=== PATIENT | female | born 1935 | race African-American/Black ===

== ENCOUNTER 2019-08-12 08:21 | Day surgery (SDC) | payer MEDICARE, MEDICAID ==
[2019-08-08 17:37] LABS: BASOPHILS % (AUTO) 1.1 % (0.0-2.0); EOSINOPHILS % (AUTO) 2.6 % (0.0-3.0); HEMATOCRIT 37.1 % (37.0-47.0); HEMOGLOBIN 12.5 G/DL (12.0-16.0); MEAN CORPUSCULAR VOLUME 87 FL (80-99); MONOCYTES % (AUTO) 6.6 % (1.0-10.0); NEUTROPHILS % (AUTO) 63.6 % (45.0-75.0); PLATELET COUNT 248 K/UL (150-450); RED BLOOD COUNT 4.25 M/UL (4.20-5.40); RED CELL DISTRIBUTION WIDTH 10.8 % (11.6-14.8); WHITE BLOOD COUNT 7.1 K/UL (4.8-10.8)
[2019-08-08 17:55] LABS: ANION GAP 9 mmol/L (5-15); BLOOD UREA NITROGEN 21 mg/dL (7-18); CALCIUM 9.8 MG/DL (8.5-10.1); CARBON DIOXIDE 26 MMOL/L (21-32); CHLORIDE 104 MMOL/L (98-107); CREATININE 1.3 MG/DL (0.55-1.30); POTASSIUM 4.3 MMOL/L (3.5-5.1); SODIUM 139 MMOL/L (136-145)
--- NOTE | 2019-08-09 10:48 | Opthalmology H&P ---
Ophthalmology H&P H&P Chief Complaint: decreased vision in right eye HPI Vision Affects Ability to: read, manage personal affairs HPI Narrative Blurry vision Exam Visual Acuity: OD Counting Fingers OD 20/30 Tension: OD 15 OS 16 Eye Exam: normal OU: external exam, palpebral fissure-width, marginal reflex distance, levator function, corneas, anterior chambers, lens - Dense PSC OD / PSC OS, fundus exam; findings: lens - Dense PSC OD /PSC OS Assessment/Plan Treatment Plan: cataract extraction w/ lens implant Goals of Treatment: improvement of vision, enhance quality of life Attestation Attestation The risks and benefits of the surgery as well as alternative procedures were explained to the patient in detail. Richard Reddy MD Aug 09, 2019 10:48
--- NOTE | 2019-08-09 10:50 | Pre-Procedure Note/Attestation ---
Pre-Procedure Note/Attestation Complete Prior to Procedure Planned Procedure: right Procedure Narrative: Cataract extraction with intraocular lens implant right eye Indications for Procedure Pre-Operative Diagnosis: Dense posterior subcapsular cataract right eye Attestation I attest that I discussed the nature of the procedure; its benefits; risks and complications; and alternatives (and the risks and benefits of such alternatives ), prior to the procedure, with the patient (or the patient's legal customer service representative). I attest that, if there was a reasonable possibility of needing a blood transfusion, the patient (or the patient's legal customer service representative) was given the [facility] standardized written summary, pursuant to the Ish Priscilla Blood Safety Act ([place] Health and Safety Code # 1645, as amended). I attest that I re-evaluated the patient just prior to the surgery and that there has been no change in the patient's H&P, except as documented below: Richard Reddy MD Aug 09, 2019 10:50
[2019-08-12] VITALS (8 sets, daily range): BP systolic 143–178; BP diastolic 76–92
[~2019-08-12] VITALS: Ht 160 cm; Wt 72.6 kg
[~2019-08-12 08:21] MED LIST: AMLODIPINE BESYL5 MG ORAL; Akten 3.5% 1ml Btl RIGHT EYE ONE; GLYBURIDE-METF1 EAC1 PO; Proparacaine 0.5% Opth Soln 15ml RIGHT EYE ONE; Tetracaine 0.5% Opth 4ml Soln RIGHT EYE ONE
[2019-08-12] MEDS: Tobramycin Op Soln 0.3% 5ml RIGHT EYE SCH ×3 (12:21→13:01)
[2019-08-12] MEDS: Cyclopentolate 1% Opth Sol 2ml RIGHT EYE SCH ×3 (12:21→13:00)
[2019-08-12] MEDS: Phenylephrine 10% Opth Soln 5ml RIGHT EYE SCH ×3 (12:22→13:00)
[2019-08-12] MEDS: Diclofenac Sod 0.1% Op Soln RIGHT EYE SCH ×3 (12:22→13:01)
[2019-08-12] MEDS: Tropicamide 1% Opth 15ml Soln RIGHT EYE SCH ×3 (12:22→13:00)
[2019-08-12] MEDS ORDERED: LISINOPRIL10 MG ORAL (12:59)
[2019-08-12] MEDS ORDERED: ATORVASTATIN CA20 MG ORAL (12:59)
[2019-08-12] MEDS ORDERED: METOPROLOL TART25 MG ORAL (12:59)
[2019-08-12] MEDS ORDERED: METFORMIN HCL500 M1 ORAL (12:59)
[2019-08-12] MEDS ORDERED: CLOPIDOGREL75 MG ORAL (12:59)
[2019-08-12] MEDS ORDERED: ASPIRIN81 MG ORAL (12:59)
[2019-08-12] MEDS ORDERED: EPINEPHrine 1mg/1ml Amp ONE ×2 (13:30→15:04)
[2019-08-12] MEDS ORDERED: Polysporin Opth Oint 3.5gm ONE (13:30)
[2019-08-12] MEDS ORDERED: BSS 500ml btl ONE (13:31)
[2019-08-12] MEDS ORDERED: Povidone-Iodine 5% opth solution ONE (13:31)
[2019-08-12] MEDS ORDERED: Sodium Hyaluronate 14 mg/ml 0.85ml ONE (13:31)
[2019-08-12] MEDS ORDERED: BSS 15ml BTL ONE ×2 (13:31→15:04)
[2019-08-12] MEDS ORDERED: Propofol 200mg/20ml IV ONE (14:00)
[2019-08-12] MEDS ORDERED: Pred Forte 1% Opth Susp 1ml ONE (14:00)
[2019-08-12] MEDS ORDERED: NS Irrig 1000ml ONE (14:00)
[2019-08-12] MEDS ORDERED: Sterile Water Irrig 1000ml IRRIG ONE (14:00)
[2019-08-12] MEDS ORDERED: LR 1000ml ONE (14:00)
[2019-08-12] MEDS ORDERED: Lidocaine 1% MPF 10mg/ml 5ml ONE (14:00)
[2019-08-12] MEDS ORDERED: Dexamethasone 4mg/ml vial ONE (14:00)
[2019-08-12] MEDS ORDERED: Pilocarpine 1% Opth 15ml Soln ONE (14:00)
[2019-08-12] MEDS ORDERED: Midazolam 2mg/2ml Inj ONE (14:07)
[2019-08-12] MEDS ORDERED: LR 1000ml 1,000 ML IVLG SCH (14:25)
--- NOTE | 2019-08-12 14:29 | Anethesia Preoperative Eval ---
Anesthesia Pre-op PMH/ROS General Date of Evaluation: Aug 12, 2019 Time of Evaluation: 14:13 Anesthesiologist: Armin ASA Score: ASA 3 Mallampati Score Class I : Soft palate, uvula, fauces, pillars visible Class II: Soft palate, uvula, fauces visible Class III: Soft palate, base of uvula visible Class IV: Only hard plate visible Mallampati Classification: Class II Surgeon: Maureen Diagnosis: Cataract OD Surgical Procedure: Cat Ext IOL OD Anesthesia History: none Family History: no anesthesia problems Allergies: Coded Allergies: No Known Allergies (Unverified , 06/14/13) Medications: see eMAR Patient NPO?: Yes Past Medical History Cardiovascular: Reports: HTN, other - HL Gastrointestinal/Genitourinary: Reports: other - Colorectal CA Endocrine: Reports: DM Other: obesity - BMI 30 PSxH Narrative: Hemicolectomy Anesthesia Pre-op Phys. Exam Physician Exam Last Vital Signs Date Time Temp Pulse Resp B/P (MAP) Pulse Ox O2 Delivery O2 Flow Rate FiO2 08/12/19 12:51 Room Air 08/12/19 12:27 97.6 65 18 169/80 99 Constitutional: NAD Neurologic: CN 2-12 intact Cardiovascular: RRR Respiratory: CTA Gastrointestinal: S/NT/ND Airway Exam Mallampati Score: Class II MO: limited ROM: limited Teeth: missing, intact Anesthesia Pre-op A/P Risk Assessment & Plan Assessment: ASA 3 Plan: TIVA Status Change Before Surgery: No Miguel Funez MD Aug 12, 2019 14:29
[2019-08-12] MEDS ORDERED: oxyCODONE HCL/Acetaminophen 5/325mg ORAL PRN (14:30)
[2019-08-12] MEDS ORDERED: Midazolam 2mg/2ml Inj IVP PRN (14:30)
[2019-08-12] MEDS ORDERED: Hydromorphone 0.5mg/0.5ml inj IVP PRN (14:30)
[2019-08-12] MEDS ORDERED: Labetalol 5mg/ml 20ml vial IV PRN (14:30)
[2019-08-12] MEDS ORDERED: Atropine Sulfate 0.4mg/ml inj IVP PRN (14:30)
[2019-08-12] MEDS ORDERED: Ketorolac 30mg Inj IV PRN ×2 (14:30)
[2019-08-12] MEDS ORDERED: Meperidine 50mg/ml Inj(FOR RIGORS ONLY) IVP PRN (14:30)
[2019-08-12] MEDS ORDERED: fentaNYL 100 mcg/2 mL IV PRN (14:30)
[2019-08-12] MEDS ORDERED: LORazepam Inj 2mg/ml 1ml IV PRN (14:30)
[2019-08-12] MEDS ORDERED: Metoclopramide 10mg/2ml Inj IVP PRN (14:30)
[2019-08-12] MEDS ORDERED: DiphenhydrAMINE 50mg/ml Inj IVP PRN (14:30)
[2019-08-12] MEDS ORDERED: HYDROcodone/Acetamin 5/325 tab ORAL PRN (14:30)
[2019-08-12] MEDS ORDERED: HYDROcodone/Acetamin 7.5/325 tab ORAL PRN (14:30)
--- NOTE | 2019-08-12 14:30 | Immediate Post-Op Evaluation ---
Immediate Post-Op Evalulation Immediate Post-Op Evalulation Procedure: Cat Ext IOL OD Date of Evaluation: Aug 12, 2019 Time of Evaluation: 15:09 IV Fluids: 900 LR Blood Products: 0 Estimated Blood Loss: 1 Urinary Output: 0 Blood Pressure Systolic: 158 Blood Pressure Diastolic: 92 Pulse Rate: 77 Respiratory Rate: 16 O2 Sat by Pulse Oximetry: 100 Temperature (Fahrenheit): 97.3 Pain Score (1-10): 1 Nausea: No Vomiting: No Complications 0 Patient Status: awake, reacts, none Hydration Status: adequate Miguel Funez MD Aug 12, 2019 14:30
--- NOTE | 2019-08-12 14:31 | 48 Hour Post Anesthesia Eval ---
Post Anesthesia Evaluation Procedure: Cat Ext IOL OD Date of Evaluation: Aug 12, 2019 Time of Evaluation: 17:12 Blood Pressure Systolic: 161 0: 82 Pulse Rate: 76 Respiratory Rate: 16 Temperature (Fahrenheit): 97.3 O2 Sat by Pulse Oximetry: 99 Airway: patent Nausea: No Vomiting: No Pain Intensity: 1 Hydration Status: adequate Cardiopulmonary Status: Stable Mental Status/LOC: patient returned to baseline Follow-up Care/Observations: 0 Post-Anesthesia Complications: 0 Follow-up care needed: ready to discharge Miguel Funez MD Aug 12, 2019 14:31
[2019-08-12] MEDS ORDERED: Lidocaine 4% Amp ONE (15:04)
--- NOTE | 2019-08-13 15:31 | Brief Operative Note ---
Immediate Post Operative Note Operative Note Chief Complaint: Blurry vision Pre-op Diagnosis: Dense posterior subcapsular cataract right eye Procedure: Cataract extraction with IOL implant right eye Post-op Diagnosis: Pseudo OD Findings: consistent w/pre-op dx studies Surgeon: Richard Reddy MD Anesthesiologist: Miguel Saenz MD Anesthesia: MAC Specimen: none Complications: none Condition: stable Fluids: LR Estimated Blood Loss: none Drains: none Implant(s) used?: Yes - IOL OD Richard Reddy MD Aug 13, 2019 15:31
--- NOTE | 2019-08-13 15:34 | Operative Note - PDOC ---
Operative Note Operative Note Date of Operation/Procedure: Aug 12, 2019 Chief Complaint: Blurry vision Pre-op Diagnosis: Dense posterior subcapsular cataract right eye Procedure: Cataract extraction with IOL implant right eye Post-op Diagnosis: Pseudo OD Operative Findings: consistent w/pre-op dx studies Surgeon: Richard Reddy MD Anesthesiologist: Miguel Saenz MD Anesthesia: MAC Specimen: none Complications: none Condition: stable Fluids: LR Estimated Blood Loss: none Drains: none Implant(s) used?: Yes - IOL OD Indications for Procedure Dense posterior subcapsular cataract right eye Description of Procedure This patient has been complaining visually significant cataract in the right eye with the best corrected visual acuity of counting fingers. The patient complains of difficulties with glare in performing activities of daily living and wants to manage personal affairs with comfort and accuracy and see well enough to move with safety at home and outdoors independently. The risks, benefits and alternatives of the procedure were discussed with the patient in the office prior to scheduling surgery. All questions from the patient were answered after the surgical procedure was explained in detail. The risks of the procedure as explained to the patient include, but are not limited to, pain, infection, bleeding, loss of vision, retinal detachment, need for further surgery, loss of lens nucleus, double vision, etc. Alternative procedures were discussed which include, to do nothing or seek a second opinion. Informed consent for this procedure was obtained from the patient. The patient was referred to a primary care physician for a cardiopulmonary clearance prior to surgery, after proper evaluation was done patient was properly scheduled for outpatient surgery. The patient was brought to the operating room where the anesthesiologist established I.V. lines and cardiac monitoring leads. Mild intravenous sedation was administered. The patient was then prepared with a 5% solution of povidone -iodine to the conjunctival fornix and lashes, and a 5% solution of povidone- iodine to the lids and periorbital skin. The patient was then draped in the usual sterile fashion. A lid speculum was then placed in the operative eye. A keratome blade was then used to create a biplanar incision into the anterior chamber. Viscoelastics was then instilled into the anterior chamber. A capsulorrhexis was then fashioned with an utrata forceps. The lens nucleus was hydrodissected and hydrodelineated with a G 27 Cannula. Paracentesis incision was made at 3 o'clock with sharp blade. The phacoemulsification unit, after being properly adjusted and tested, was then used to emulsify the nucleus followed by aspiration and irrigation of residual cortical material. Healon was then instilled into the anterior chamber. The corneal wound was then enlarged to the size of the optic with the aaron keratome blade. The intraocular lens was then inspected for right power and size and thought to be satisfactory. Then the lens was gently placed in the capsular bag. Positioning within the capsular bag was confirmed by direct visualization. Optic centration was accomplished with a Sinskey hook. Viscoelastics was removed from the anterior chamber using the irrigation and aspiration unit. The corneal wound was then tested for leaks and none were found. The lid speculum were then removed. Sponge and needle counts were correct. An eye patch and shield were placed over the operative eye. The patient was taken to the recovery room in stable condition. There were no complications. The patient tolerated the procedure well. The patient was then transferred to the ambulatory surgery unit in stable and satisfactory condition , was given detailed written instructions and asked to follow up in the office the next day. Richard Reddy MD Aug 13, 2019 15:34
== END 2019-08-12 16:00 | disposition home or self-care (01) ==
LOC: SUR 08:21
DX: H25.031 Anterior subcapsular polar age-related cataract, right eye (principal); I10 Essential (primary) hypertension; Z79.02 Long term (current) use of antithrombotics/antiplatelets; Z85.038 Personal history of other malignant neoplasm of large intestine; E11.9 Type 2 diabetes mellitus without complications; E66.9 Obesity, unspecified; Z68.28 Body mass index [BMI] 28.0-28.9, adult
CPT/HCPCS: 36415; 66984; 80048; 82962; 85025; 85610; 85730; J0171; J1100; J2250; J2704; J3370; V2632; 94003; 94150